=== PATIENT | female | born 1955 ===

== ENCOUNTER 2018-05-20 02:21 | Observation (INO) | payer MEDICARE, MEDICAID ==
[2018-05-19 14:42] LABS: INR 0.97
[2018-05-20] VITALS (14 sets, daily range): BP systolic 103–148; BP diastolic 64–90
[~2018-05-20] VITALS: Ht 160 cm; Wt 72.6 kg
[~2018-05-20 02:21] MED LIST: BUSP10TA95 PO; CALC-852 PO; DEN120I SUBQ; DOCU-416 PO; FLUO-177 PO; GABA-549 PO; HYDR0.5S2 IL; IBUP-136 PO; LEVO75TA73 PO; LISI-362 PO; ONDA-2 PO; OXYB5TAB80 PO; POLY17PO25 PO; TAMO20TA24 PO; XELOD500PT PO
[2018-05-20] MEDS ORDERED: FAMOTIDINE 20 MG TAB PO ONE (06:00)
[2018-05-20] MEDS ORDERED: NORMOSOL R SOLN(*) 1000 ML BAG 1,000 ML IV PRN (06:00)
[2018-05-20] MEDS ORDERED: MIDAZOLAM 2 MG/2 ML VIAL IVP PRN (06:00)
[2018-05-20] MEDS ORDERED: ceFAZolin(*) 2GM/D5W 50ML 50 ML IVPB ONE (06:00)
[2018-05-20] MEDS ORDERED: ACETAMINOPHEN 500 MG TAB PO ONE (06:00)
[2018-05-20] MEDS ORDERED: PREGABALIN 150 MG CAPSULE PO ONE (06:00)
[2018-05-20] MEDS ORDERED: LIDOCAINE/SOD BICARB 8.4% SYR ID ONE (06:00)
[2018-05-20] MEDS ORDERED: BACITRACIN 50000 UNIT/VIAL 100,000 UNIT in NS 0.9% 3000 ML IRRIGATION BAG 3,000 ML IR ONE (06:00)
[2018-05-20] MEDS ORDERED: TRANEXAMIC AC 1000 MG/10ML SDV 1,000 MG in DEXTROSE 5% 50 ML BAG 50 ML IV ONE (06:00)
[2018-05-20] MEDS ORDERED: cloNIDine EPIDUR INJ 100MCG/ML 40 MCG, ROPIVACAINE 0.5% 20 ML VIAL 25 ML, EPINEPHrine H... INJ ONE (06:00)
[2018-05-20] MEDS ORDERED: LIDOCAINE 2% IV 100 MG/5ML SYR ONE (06:47)
[2018-05-20] MEDS ORDERED: fentaNYL CITR 250 MCG/5 ML AMP ONE ×2 (06:47→07:46)
[2018-05-20] MEDS ORDERED: PROPOFOL EMUL(*) 10MG/ML 20 ML 20 ML ONE (06:48)
[2018-05-20] MEDS ORDERED: ROPIVACAINE 0.5% 20 ML VIAL ONE (06:49)
[2018-05-20] MEDS ORDERED: EPINEPHrine HCL 1 MG/ML AMP ONE (06:49)
[2018-05-20] MEDS ORDERED: DEXAMETHASONE SOD 4 MG/ML VIAL ONE ×2 (06:49→07:26)
[2018-05-20] MEDS ORDERED: LIDOCAINE MPF 1% 5 ML VIAL ONE (06:53)
[2018-05-20] MEDS ORDERED: KETAMINE HCL 200 MG/20 ML MDV ONE ×2 (07:22→08:23)
[2018-05-20] MEDS ORDERED: SUGAMMADEX SOD 200 MG/2 ML SDV ONE (08:26)
[2018-05-20] MEDS ORDERED: ROCURONIUM BROM 10 MG/ML 10 ML ONE (08:30)
[2018-05-20] MEDS ORDERED: fentaNYL CITR 100 MCG/2 ML AMP ONE ×3 (09:09→10:03)
[2018-05-20] MEDS ORDERED: MAGNESIUM CITRATE 300 ML BTL PO PRN (10:40)
[2018-05-20] MEDS ORDERED: FLUSH 10 ML SYR IVP PRN (10:40)
[2018-05-20] MEDS ORDERED: ONDANSETRON 4 MG/2 ML VIAL IVP PRN (10:40)
[2018-05-20] MEDS ORDERED: ZOLPIDEM TARTRATE 5 MG TAB PO PRN (10:40)
[2018-05-20] MEDS ORDERED: BISACODYL 10 MG SUPP PR PRN (10:40)
[2018-05-20] MEDS ORDERED: diphenhydrAMINE 25 MG CAP PO PRN (10:40)
[2018-05-20] MEDS ORDERED: HYDROmorphone HCL 2 MG/ML SDV IVP PRN (10:40)
[2018-05-20] MEDS ORDERED: PROMETHAZINE 25 MG/ML 1 ML AMP IVP PRN (10:40)
[2018-05-20] MEDS ORDERED: MAGNESIUM HYDROXIDE* 30ML UDCP PO PRN (10:40)
[2018-05-20] MEDS ORDERED: LR 1000 ML BAG 1000 ML IV PRN (10:40)
[2018-05-20] MEDS ORDERED: diphenhydrAMINE 50 MG/ML VIAL IVP PRN (10:40)
--- NOTE | 2018-05-20 12:00 | RADIOLOGY IMAGING REPORT ---
FACILITY: [facility] - [place], [place] PATIENT NAME: Keyanna Caldwell : 1955 MR: [id number] V: [id number] EXAM DATE: ORDERING PHYSICIAN: LUPE MENDEZ TECHNOLOGIST: Location: [facility] - [place], [place] Patient: Keyanna Caldwell : 1955 Visit/Account:[id number] Date of Sevice: 05/20/2018 KNEE LIMITED RIGHT HISTORY: POST R TKA Two-view examination right knee. No comparison FINDINGS: Status post right knee arthroplasty. Good positioning of the femoral and tibial components. No post operative bony fracture noted. Postoperative soft tissue changes noted. Impression 1. Status post right knee arthroplasty Report Dictated By: Joni De Leon MD at 05/20/2018 11:54 AM Report E-Signed By: Joni De Leon MD at 05/20/2018 11:56 AM WSN:[email or web address]
--- NOTE | 2018-05-20 13:10 | OPERATIVE REPORT 1 ---
EVENT DATE: May 20, 2018 SURGEON: Cy Marshall MD ANESTHESIOLOGIST: Jamel Smiley M.D. ANESTHESIA: General plus block. PHYSICAL SCIENCES PROFESSOR: Holden Lagos PA-C PREOPERATIVE DIAGNOSIS Right knee osteoarthritis. POSTOPERATIVE DIAGNOSIS Right knee osteoarthritis. PROCEDURE PERFORMED Right total knee arthroplasty. FINDINGS The patient had a significant amount of arthritic changes along the lateral side in the patellofemoral joint but was amenable for a total knee replacement. ESTIMATED BLOOD LOSS About 200 mL. DRAINS None. COMPLICATIONS None. TOURNIQUET TIME About 21 minutes, which was up just during instrumentation of the components. IMPLANTS USED Aesculap knee with a Aesculap CORBETT femur, which was a size 5 narrow right specific femur, a tibial plateau which was cemented which was a size 2+, a posterior stabilized gliding surface T2+/2+ tibial insert as well as an Aesculap tibial obturator screw, which was a 12 mm screw. We also put in an Attune patella medialized dome patella. SPECIMENS None. INDICATIONS AND HISTORY This patient is a 62-year-old female that presented to my clinic for evaluation of right knee pain and irritation going on for some time. She continued to have pain and irritation despite conservative management and, therefore, wanted to go ahead with total knee replacement since she had [id number] arthritis. 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 In addition, she is also on a significant amount of Dilaudid with a pain pump and also other pain medications. We told her there is no way we can control her pain medication after the procedure itself and that she would continue to have problems initially associated with the pain medication but this may relieve it and that the initial postoperative period would be very difficult for her. We also went over the risks and benefits associated with a total knee and that is may last her entire life given the fact that she is only 62 years old. DESCRIPTION OF PROCEDURE The patient was brought into the operating room. She and the procedure were both verified. She was placed supine on the operating table and induced intubated by anesthesia after being given a block by Dr. Smiley The right lower extremity was prepped and draped in the usual fashion and a time-out was observed, verifying the correct patient and procedure. The standard incision was made through the anterior approach to the knee. I then did a medial parapatellar approach and subluxed the patella to the lateral side. Once I was able to do this, I was able to peel back the MCL a little bit in order to gain access to the medial side and take out the anterior aspect of the menisci in both the medial and lateral sides and also the patellar fat pad. I then high flexed the knee and took out the ACL and a little bit of the leading edge of the PCL. We were then able to remove some of the osteophytes and then drill down the central portion with an intramedullary drill. We then took the Aesculap intramedullary guide and was able to cut the distal femur and then size it to a size 5 of the Aesculap components. Once we were able to size it to the size 5, I was then able to make the chamfer cuts and the posterior femur cuts without any difficulty. I then cut the box out using their standard guide after putting the femoral component on and then was able to turn attention back to the tibia. Once on the tibia, I was able to then clean out of the rest of the menisci by subluxing it forward and then cleaning out the rest of the PCL and I was then able to measure the tibia and drill through the intramedullary canal and then put in the intramedullary guide. Once I put in the intramedullary guide, I was then able to take off a couple of millimeters off the lateral side, which was the low side in this particular patient since she had a valgus deformity. This was then followed by cutting the proximal aspect of the tibia using the guide. I then removed all the instrumentation and then was able to cut the osteophytes off the rest of the tibia and make sure it was nice and smooth. I then released some of the posterior capsule. She had quite a bit of flexion contracture prior to the procedure. I then was able to remove the posterior osteophytes, especially off that lateral side, and then get it to where it extended a lot better. This was then followed by placement of the trial tibial tray and drilling that in place and prepping it within the usual fashion. I then put in the femoral component back again and was able to trial. We were unable to get to full extension so, therefore, I then cut more off the distal femur. We cut another 4 mm off the distal femur and did a little more of a posterior capsular release and this allowed it to go to full extension. I then turned attention to the patella, where I was able to measure to the patella and then cut 7.5 mm off the patella itself. I then prepped it for a DePuy Attune medialized domed patella associated with it and trialed it with a size 32. I then put up the tourniquet after exsanguinating the limb and then cemented in all the components, put in the tibial insert and then held it in place until the cement was hardened. I then released the tourniquet and then closed the medial peripatellar approach using a #2 Stratafix followed by 2-0 Vicryl in the subcutaneous fat. This was then followed by 2-0 Stratafix in the subcutaneous tissue and then 4-0 Monocryl in a subcuticular running stitch. This was then followed by the glue mesh adhesive dressing. The patient was then awakened and extubated and transferred to PACU in stable condition. RUKHSANA
--- NOTE | 2018-05-20 13:31 | Hospitalist Consultation ---
History of Present Illness Requesting Physician Dr. Marshall Reason for Consult Medical Management Chief Complaint s/p right total knee replacement History of Present Illness She was admitted s/p right total knee replacement. It is reported the surgery went well and without complication. History Problems: (1) Hypertension Status: Chronic (2) Hypothyroidism Status: Chronic (3) Breast cancer metastasized to bone Status: Chronic (4) Depression with anxiety Status: Chronic (5) Chronic pain Status: Chronic Home Meds Reported Medications Gabapentin (GABAPENTIN) 300 Mg Capsule, 300 MG PO TID, CAPSULE 05/13/18 Calcium Carbonate/Vitamin D3 (CALCIUM + VITAMIN D TABLET) 1 Each Tablet, 1 EACH PO 05/13/18 Denosumab (XGEVA) 120 Mg/1.7 Ml Vial, 120 MG SUBQ, VIAL 05/13/18 Hydromorphone HCl/Pf (Dilaudid 0.5 mg/0.5 ml Syringe) 0.5 Mg/0.5 Ml Syringe, 5.35 MCG IL QDAY 05/13/18 Ibuprofen (IBUPROFEN) 200 Mg Capsule, 3 CAP PO PRN, CAPSULE 05/13/18 Capecitabine (XELODA) 500 Mg Tab, 500 MG PO QDAY, TAB 05/13/18 Tamoxifen Citrate (TAMOXIFEN CITRATE) 20 Mg Tablet, 20 MG PO QDAY 05/13/18 Docusate Sodium (COLACE) 100 Mg Capsule, 100 MG PO BID, CAPSULE 05/13/18 Ondansetron Hcl (ONDANSETRON HCL) 4 Mg Tablet, 8 MG PO PRN, TAB 05/13/18 Levothyroxine Sodium (LEVOTHYROXINE SODIUM) 75 Mcg Tablet, 75 MCG PO QDAY, TAB 05/13/18 Fluoxetine Hcl (FLUOXETINE HCL) 20 Mg Capsule, 20 MG PO QDAY, CAPSULE 05/13/18 Buspirone Hcl (BUSPIRONE HCL) 10 Mg Tablet, 10 MG PO BID, #20 TAB 05/13/18 Lisinopril (LISINOPRIL) 10 Mg Tablet, 10 MG PO QDAY, TAB 05/13/18 Discontinued Reported Medications Polyethylene Glycol 3350 (MIRALAX) 17 Gm Powd.pack, 17 GM PO, PKT 05/13/18 Oxybutynin Chloride (OXYBUTYNIN CHLORIDE ER) 5 Mg Tab.er.24, 5 MG PO QDAY, TAB.SA 05/13/18 Tamoxifen Citrate (TAMOXIFEN CITRATE) 20 Mg Tablet, 20 MG PO 05/13/18 Allergies: Coded Allergies: Sulfa (Sulfonamide Antibiotics) (Verified Allergy, Severe, AIRWAY OBSTRUCTION, 05/13/18) ITCHING loratadine (Verified Allergy, Intermediate, 05/13/18) VIBRATION SENSATION FULL BODY pseudoephedrine (Verified Allergy, Intermediate, 05/13/18) VIBRATION SENSATION FULL BODY Patient History: FH: breast cancer BROTHER OR SISTER FH: cancer BROTHER OR SISTER BROTHER OR SISTER FH: diabetes mellitus MOTHER FH: thyroid disease MOTHER Hx Smoking: No Smoking Status: Never Smoker Caffeine Intake: Coffee, Tea, Soda Caffeine/Cups Per Day: 4-5 CPD Hx Alcohol Use: Yes Alcohol Used: Wine Hx Substance Use Disorder: No Social Drug Use: Never History of IV Drug Use: No Review of Systems All Systems Reviewed/Normal: Yes, Except as Noted Exam Vital Signs Vital Signs Date Time Temp Pulse Resp B/P (MAP) Pulse Ox O2 Delivery O2 Flow Rate FiO2 05/20/18 11:03 99.0 16 148/81 (103) 98 1.0 05/20/18 11:03 81 05/20/18 06:31 Room Air General Appearance: Alert, Awake, No Acute Distress, Afebrile Neuro: No Gross deficits Cardiovascular: Regular Rate and Rhythm Respiratory: No Respiratory Distress, Clear to Auscultation Psych: Alert & Oriented X3, Appropriate Mood & Affect Assessment and Plan Problems: (1) Status post total right knee replacement Status: Acute Assessment & Plan: Followed by Dr. Marshall. Secondary to breast cancer and current medication regimen, would recommend Xarelto for DVT prophylaxis as patient is at increased risk for DVT. She has no history of DVT or PE. (2) Breast cancer metastasized to bone Status: Chronic Assessment & Plan: She is on chronic treatment with Xeloda, Xgeva, and Tamoxifen. She does Xgeva infections twice yearly, January and July. She reports she stopped Xeloda and Tamoxifen 05/12. She states that her recent PET scan was "clear" and she does not have recommendations from her oncologist as when to restart her medications. Will consult with cancer center for recommendations. (3) Hypertension Status: Chronic Assessment & Plan: She is on chronic treatment with Lisinopril. This has been restarted with hold parameters. (4) Hypothyroidism Status: Chronic Assessment & Plan: She is on chronic treatment with Levothyroxine. (5) Depression with anxiety Status: Chronic Assessment & Plan: She is on chronic treatment with Fluoxetine and Buspirone. (6) Chronic pain Status: Chronic Assessment & Plan: She does have a chronic pain pump, which is located on her left thigh, which delivers Dilaudid at 5.35 mg to the lumbar spine daily. She does have a pain contract with Dr. Travis. Venous Thromboembolism Antithrombotics Is Pt On Any Antithrombotics?: Yes SHRUTHI RAHMAN BIOMEDICAL FIELD SERVICE ENGINEER May 20, 2018 13:31
[2018-05-20] MEDS: GABAPENTIN 300 MG CAP PO SCH ×2 (14:22→20:47)
[2018-05-20] MEDS: ceFAZolin(*) 1 GM VIAL 1 GM in NS(*) 0.9% 100 ML ADDVANT BAG 100 ML IVPB SCH ×2 (14:41→23:34)
[2018-05-20] MEDS: traMADol 50 MG TAB PO PRN (18:51)
[2018-05-20] MEDS: DOCUSATE SODIUM 100 MG CAP PO SCH (20:48)
[2018-05-20] MEDS: busPIRone HCL 5 MG TAB PO SCH (20:48)
[2018-05-20] MEDS ORDERED: ASPIRIN 325 MG TAB PO SCH (21:00)
[2018-05-21 00:23] VITALS: BP 112/60
[2018-05-21] MEDS: traMADol 50 MG TAB PO PRN (02:04)
[2018-05-21 02:15] VITALS: BP 102/71
[2018-05-21 05:50] LABS: PLATELET COUNT, AUTOMATED 155 K/uL (150-450)
[2018-05-21 07:15] VITALS: BP 130/77
[2018-05-21] MEDS: ceFAZolin(*) 1 GM VIAL 1 GM in NS(*) 0.9% 100 ML ADDVANT BAG 100 ML IVPB SCH (07:40)
[2018-05-21 08:31] VITALS: BP 126/73
[2018-05-21] MEDS: DOCUSATE SODIUM 100 MG CAP PO SCH (08:34)
[2018-05-21] MEDS: busPIRone HCL 5 MG TAB PO SCH (08:34)
[2018-05-21] MEDS: GABAPENTIN 300 MG CAP PO SCH ×2 (08:35→13:21)
--- NOTE | 2018-05-21 08:43 | Hospitalist Progress Note ---
Subjective Progress Notes Subjective She has no complaints this morning. She had no acute events overnight. Patient Complains of: Cardiovascular: No: Chest Pain Respiratory: No: Shortness of Breath Physical Exam Vital Signs Date Time Temp Pulse Resp B/P (MAP) Pulse Ox O2 Delivery O2 Flow Rate FiO2 05/21/18 08:31 94 126/73 (90) 05/21/18 07:15 98.3 16 94 Room Air 05/21/18 02:15 0.5 Intake and Output 05/21/18 07:00 Intake Total 3169.6 ml Output Total 100 ml Balance 3069.6 ml Intake Oral 1421 ml IV Total 1748.6 ml Output Estimated Blood Loss 100 ml # Voids 5 General Appearance: Alert, Awake, No Acute Distress, Afebrile Neuro: No Gross deficits Cardiovascular: Regular Rate and Rhythm Respiratory: No Respiratory Distress, Clear to Auscultation GI: Soft and Non-Tender Psych: Alert & Oriented X3, Appropriate Mood & Affect Result Diagram: 05/21/1853605/21/18536 Assessment and Plan Problems: (1) Status post total right knee replacement Status: Acute Assessment & Plan: Followed by Dr. Marshall. Secondary to breast cancer and current medication regimen, would recommend Xarelto for DVT prophylaxis as patient is at increased risk for DVT. She has no history of DVT or PE. (2) Breast cancer metastasized to bone Status: Chronic Assessment & Plan: She is on chronic treatment with Xeloda, Xgeva, and Tamoxifen. She does Xgeva infections twice yearly, January and July. She reports she stopped Xeloda and Tamoxifen 05/12. She states that her recent PET scan was "clear" prior to surgery. Spoke with Dr. Denney in [facility], he recommends she restart her Tamoxifen in two weeks and not restart her Xeloda until she has follow up appointment in two weeks with him. He agreed with Xarelto for DVT prophylaxis. (3) Hypertension Status: Chronic Assessment & Plan: She is on chronic treatment with Lisinopril. This has been restarted with hold parameters. (4) Hypothyroidism Status: Chronic Assessment & Plan: She is on chronic treatment with Levothyroxine. (5) Depression with anxiety Status: Chronic Assessment & Plan: She is on chronic treatment with Fluoxetine and Buspirone. (6) Chronic pain Status: Chronic Assessment & Plan: She does have a chronic pain pump, which is located on her left thigh, which delivers Dilaudid at 5.35 mg to the lumbar spine daily. She does have a pain contract with Dr. Travis. Exam Sepsis Risk: No Definite Risk SHRUTHI RAHMAN CREDIT PROCESSOR May 21, 2018 08:43
[2018-05-21] MEDS ORDERED: FLUoxetine HCL 20 MG CAP PO SCH (09:00)
[2018-05-21] MEDS ORDERED: LEVOTHYROXINE SOD 0.075 MG TAB PO SCH (09:00)
[2018-05-21] MEDS ORDERED: RIVAROXABAN 10 MG TAB PO SCH (09:00)
[2018-05-21] MEDS ORDERED: LISINOPRIL 10 MG TAB PO SCH (09:00)
[2018-05-21 10:44] VITALS: BP 155/87
[2018-05-21 11:46] VITALS: Ht 160 cm; Wt 72.6 kg
[2018-05-21] MEDS ORDERED: RIV10 PO (12:49)
== END 2018-05-21 12:47 | disposition home or self-care (01) ==
LOC: OR 02:21 → MED 11:00
PROVIDERS: ADMIT Orthopaedic Surgery; ATTEND Orthopaedic Surgery
DX: M17.11 Unilateral primary osteoarthritis, right knee (principal); E03.9 Hypothyroidism, unspecified; I10 Essential (primary) hypertension; Z85.3 Personal history of malignant neoplasm of breast; F32.9 Major depressive disorder, single episode, unspecified; G89.29 Other chronic pain; Z96.89 Presence of other specified functional implants; Z90.710 Acquired absence of both cervix and uterus; Z90.49 Acquired absence of other specified parts of digestive tract; F41.8 Other specified anxiety disorders; Z88.2 Allergy status to sulfonamides; Z88.8 Allergy status to other drugs, medicaments and biological substances
CPT/HCPCS: 27447; 36415; 73560; 76942; 85025; 85610; 86850; 86900; 86901; 97116; 97161; 97530; A9270; C1713; C1771; C1776; G0378; J0171; J0690; J0735; J1100; J1885; J2001; J2250; J2704; J2795; J3010; J3490; J7050; J7060; 82310; 82374; 82435; 82565; 82947; 84132; 84295; 84520